=== PATIENT | female | born 1980 | race Caucasian/White ===

== ENCOUNTER 2016-07-27 00:22 | Emergency (ER) | payer OTHER ==
[~2016-07-27] VITALS: Ht 157.5 cm; Wt 65.9 kg
[2016-07-27 00:25] VITALS: BP 149/91; PULSE 108; RESP 16; O2SAT 96
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
[2016-07-27] MEDS ORDERED: _HYDROcodone/APAP 5-325 mg Tablet PO PRN (00:45)
[2016-07-27] MEDS ORDERED: Amoxicillin-Clav 875-125 mg Tablet PO ONE (00:45)
[2016-07-27 01:19] VITALS: BP 140/89; PULSE 102; RESP 16; O2SAT 98
== END 2016-07-27 01:20 | disposition home or self-care (01) ==
LOC: SED 00:22
DX: S01.512A Laceration without foreign body of oral cavity, initial encounter (principal); S00.532A Contusion of oral cavity, initial encounter; V49.40XA Driver injured in collision with unspecified motor vehicles in traffic accident, initial encounter; Y93.89 Activity, other specified; Y92.410 Unspecified street and highway as the place of occurrence of the external cause; Y99.8 Other external cause status